=== PATIENT | female | born 2000 | race Caucasian/White ===

== ENCOUNTER 2019-07-05 16:02 | Emergency (ER) | payer MEDICAID ==
[~2019-07-05] VITALS: Ht 154.9 cm; Wt 95.3 kg
[2019-07-05 16:10] VITALS: BP_SYST 134
--- NOTE | 2019-07-05 16:10 | NUR ---
ER Robert Collado at bedside examining patient.
--- NOTE | 2019-07-05 16:10 | NUR ---
Patient to ER bed H1 to gown for evaluation. Side rails up.
--- NOTE | 2019-07-05 16:15 | NUR ---
Patient given written and verbal discharge instructions and verbalizes understanding. ER MD discussed with patient the results and treatment provided. Patient in stable condition. ID arm band removed. NO Rx given. Patient educated on pain management and to follow up with PMD. Pain Scale 0. Opportunity for questions provided and answered. Medication side effect fact sheet provided.
--- NOTE | 2019-07-05 17:27 | NUR ---
Written and verbal consent obtained from patient for blood alcohol, name and verified by patient. Disinfected patient's skin with BETADINE that did not contain alcohol or other volatile organic compound. Collected the blood from the subject named by venipuncture, in the presence of Officer JONN #[id number]. Used a sterile, dry hypodermic needle and dry vacuum blood collection. Two dry vacuum blood collection was supplied by the officer named above. Withdrew a specimen of blood from L HAND/R HAND of the subject named above. Inverted both blood tubes several times to ensure that the preservative and anticoagulant were thoroughly mixed in the blood specimen. I initialed both blood tube labels for identification. The labeled blood tubes were handed directly to the Officer named above. The blood tubes stopper remained in place while I had possession of the blood tubes. The Officer placed tubes into envelope and sealed it in my presence. Envelope initialed by myself and Officer named above. Patient tolerated well, bandage applied, and bleeding controlled.
[2019-07-05 17:30] VITALS: BP_SYST 134
== END 2019-07-05 17:30 ==
LOC: SED 16:02
DX: Z02.89 Encounter for other administrative examinations (principal)
CPT/HCPCS: 99283